=== PATIENT | male | born 1965 | race Caucasian/White ===

== ENCOUNTER 2017-08-08 11:15 | Inpatient (IN) | payer OTHER ==
[~2017-08-08] VITALS: Ht 170.2 cm; Wt 62.0 kg
[~2017-08-08 11:15] MED LIST: CHLO25CA PO; Z.0.NO CURRENT MEDS
[2017-08-08 11:17] VITALS: BP 178/104; PULSE 113; RESP 16; TEMP 98.4; O2SAT 96
[2017-08-08 14:21] VITALS: O2SAT 99
--- NOTE | 2017-08-08 14:24 | PD ---
HPI Chief Complaint: Lump, Cyst, Hernia Time Seen by Provider: 14:17 Travel History International Travel<30 days: No Contact w/Intl Traveler<30days: No Traveled to known affect area: No History of Present Illness HPI PATIENT STATES HAS HAD A LUMP ON ABDOMEN FOR 3 WEEKS BUT WOULD COME IN AND OUT....OVER LAST 2 DAYS HE WAS HAULING T[employer]BR[employer] AND FELT A SHARP PAIN TO ABDOMEN AND STEADY LUMP EVER SINCE, NOT GOING DOWN AND TOUCHING IT MAKES IT HURT...03/06 NO PCP PMHX:HTN, PREVIOUS ALCOHOLISM BUT PATIENT STATES THAT HE HAS KICK THE HABIT FREE SINCE A MONTH AGO.... PFSH Past Medical History Anxiety: Yes Cardiovascular Problems: Yes (HTN) Hypertension: Yes Social History Alcohol Use: Yes (WEEKLY) Tobacco Use: Yes (1/2 PPD) Allergies-Medications (Allergen,Severity, Reaction): Coded Allergies: penicillin G (Unverified Allergy, Severe, Anaphylaxis, 03/12/17) Reported Meds & Prescriptions Reported Meds & Active Scripts Active Librium (Chlordiazepoxide) 25 Mg Cap 25 Mg PO TID Reported No Current Meds (Miscellaneous Medication) Misc Review of Systems Except as stated in HPI: all other systems reviewed are Neg General / Constitutional: No: Fever Eyes: No: Visual changes HENT: No: Headaches Cardiovascular: No: Chest Pain or Discomfort Respiratory: No: Shortness of Breath Gastrointestinal: Positive: Abdominal Pain Genitourinary: No: Dysuria Musculoskeletal: No: Pain Skin: No Rash Neurologic: No: Weakness Psychiatric: No: Depression Endocrine: No: Polydipsia Hematologic/Lymphatic: No: Easy Bruising Physical Exam Narrative GENERAL: SKIN: Warm and dry. HEAD: Atraumatic. Normocephalic. EYES: Pupils equal and round. No scleral icterus. No injection or drainage. ENT: No nasal bleeding or discharge. Mucous membranes pink and moist. NECK: Trachea midline. No JVD. CARDIOVASCULAR: Regular rate and rhythm. RESPIRATORY: No accessory muscle use. Clear to auscultation. Breath sounds equal bilaterally. GASTROINTESTINAL: Abdomen soft, non-tender, nondistended. LEFT ANTERIOR ABD WALL 10X5CM AREA RAISED AND TTP MUSCULOSKELETAL: Extremities without clubbing, cyanosis, or edema. No obvious deformities. NEUROLOGICAL: Awake and alert. No obvious cranial nerve deficits. Motor grossly within normal limits. Five out of 5 muscle strength in the arms and legs. Normal speech. PSYCHIATRIC: Appropriate mood and affect; insight and judgment normal. Data Data Last Documented VS Vital Signs Date Time Temp Pulse Resp B/P (MAP) Pulse Ox O2 Delivery O2 Flow Rate FiO2 08/08/17 14:51 18 08/08/17 14:21 99 Room Air 08/08/17 11:17 98.4 113 Orders Orders Complete Blood Count With Diff (08/08/17 14:17) Comprehensive Metabolic Panel (08/08/17 14:17) Lipase (08/08/17 14:17) Urinalysis - C+S If Indicated (08/08/17 14:17) Ct Abd/Pel W Iv Contrast(Rout) (08/08/17 14:17) Iv Access Insert/Monitor (08/08/17 14:17) Ecg Monitoring (08/08/17 14:17) Oximetry (08/08/17 14:17) NPO (08/08/17 14:17) Morphine Inj (Morphine Inj) (08/08/17 14:30) Ondansetron Inj (Zofran Inj) (08/08/17 14:30) Sodium Chlor 0.9% 1000 Ml Inj (Ns 1000 M (08/08/17 14:17) Electrocardiogram (08/08/17 14:17) Iohexol 350 Inj (Omnipaque 350 Inj) (08/08/17 16:23) Labs Laboratory Tests Test 08/08/17 14:35 08/08/17 14:40 White Blood Count 9.4 TH/MM3 Red Blood Count 4.45 MIL/MM3 Hemoglobin 15.0 GM/DL Hematocrit 43.9 % Mean Corpuscular Volume 98.6 FL Mean Corpuscular Hemoglobin 33.7 PG Mean Corpuscular Hemoglobin Concent 34.2 % Red Cell Distribution Width 15.2 % Platelet Count 247 TH/MM3 Mean Platelet Volume 9.4 FL Neutrophils (%) (Auto) 67.0 % Lymphocytes (%) (Auto) 24.2 % Monocytes (%) (Auto) 7.5 % Eosinophils (%) (Auto) 1.1 % Basophils (%) (Auto) 0.2 % Neutrophils # (Auto) 6.3 TH/MM3 Lymphocytes # (Auto) 2.3 TH/MM3 Monocytes # (Auto) 0.7 TH/MM3 Eosinophils # (Auto) 0.1 TH/MM3 Basophils # (Auto) 0.0 TH/MM3 CBC Comment DIFF FINAL Differential Comment Blood Urea Nitrogen 10 MG/DL Creatinine 0.75 MG/DL Random Glucose 190 MG/DL Total Protein 7.8 GM/DL Albumin 3.0 GM/DL Calcium Level 9.0 MG/DL Alkaline Phosphatase 92 U/L Aspartate Amino Transf (AST/SGOT) 15 U/L Alanine Aminotransferase (ALT/SGPT) 16 U/L Total Bilirubin 0.3 MG/DL Sodium Level 134 MEQ/L Potassium Level 3.8 MEQ/L Chloride Level 97 MEQ/L Carbon Dioxide Level 29.7 MEQ/L Anion Gap 7 MEQ/L Estimat Glomerular Filtration Rate 110 ML/MIN Lipase 1248 U/L Urine Color YELLOW Urine Turbidity CLEAR Urine pH 5.5 Urine Specific [place] 1.022 Urine Protein TRACE mg/dL Urine Glucose (UA) 150 mg/dL Urine Ketones 10 mg/dL Urine Occult Blood NEG Urine Nitrite NEG Urine Bilirubin NEG Urine Urobilinogen 2.0 MG/DL Urine Leukocyte Esterase NEG Urine RBC LESS THAN 1 /hpf Urine WBC 1 /hpf Urine Squamous Epithelial Cells 1 /hpf Urine Mucus FEW /lpf Microscopic Urinalysis Comment CULT NOT INDICATED MDM Medical Decision Making Medical Screen Exam Complete: Yes Emergency Medical Condition: Yes Medical Record Reviewed: Yes Diagnosis Primary Impression: PANCREATITIS Additional Impression: LARGE PSEUDOCYST Admitting Information Admitting Physician Requests: Observation Fredis Willett MD Aug 08, 2017 14:24
[2017-08-08] MEDS ORDERED: ONDANSETRON HCL 4 MG/2 ML VIAL IVP ONE (14:30)
[2017-08-08] MEDS ORDERED: MORPHINE SULFATE 4 MG/ML INJ IV PUSH ONE (14:30)
[2017-08-08] MEDS: SODIUM CHLOR 0.9% 1000 ML INJ 1,000 ML IV SCH ×2 (14:46→19:33)
[2017-08-08 15:10] LABS: AUTOMATED NEUTROPHIL # 6.3 TH/MM3 (1.8-7.7); BASOPHIL % 0.2 % (0.0-2.0); EOSINOPHIL # 0.1 TH/MM3 (0-0.4); EOSINOPHIL % 1.1 % (0.0-4.0); HEMATOCRIT 43.9 % (39.0-51.0); LYMPH % 24.2 % (9.0-44.0); LYMPHOCYTE # 2.3 TH/MM3 (1.0-4.8); MEAN CELL VOLUME 98.6 FL (80.0-100.0); MEAN CORPUSCULAR HEMOGLOBIN 33.7 PG (27.0-34.0); MEAN CORPUSCULAR HGB CONC 34.2 % (32.0-36.0); MEAN PLATELET VOLUME 9.4 FL (7.0-11.0); MONO % 7.5 % (0.0-8.0); MONOCYTE # 0.7 TH/MM3 (0-0.9); PLATELET COUNT 247 TH/MM3 (150-450); RED BLOOD COUNT 4.45 MIL/MM3 (4.50-5.90); RED CELL DISTRIBUTION WIDTH 15.2 % (11.6-17.2); WHITE BLOOD COUNT 9.4 TH/MM3 (4.0-11.0)
[2017-08-08 15:28] LABS: BILIRUBIN, URINE NEG (NEG); BLOOD, URINE NEG (NEG); GLUCOSE,URINE 150 mg/dL (NEG); KETONE, URINE 10 mg/dL (NEG); MUCUS URINE FEW /lpf (OCC); NITRITE,URINE NEG (NEG); PH, URINE 5.5 (5.0-8.5); SQUAMOUS EPITHELIAL CELL URINE 1 /hpf (0-5); URINE COLOR YELLOW (YELLW/STRAW); URINE LEUKOCYTE ESTERASE NEG (NEG)
[2017-08-08 15:36] LABS: AST (GOT) 15 U/L (15-37); BICARBONATE 29.7 MEQ/L (21.0-32.0); BLOOD UREA NITROGEN 10 MG/DL (7-18); CHLORIDE 97 MEQ/L (98-107); CREATININE 0.75 MG/DL (0.60-1.30); GLOMERULAR FILTRATION RATE 110 ML/MIN (>89); GLUCOSE,RANDOM 190 MG/DL (74-106); SODIUM (NA) 134 MEQ/L (136-145)
[2017-08-08 15:42] LABS: ALKALINE PHOSPHATASE 92 U/L (45-117); ALT (GPT) 16 U/L (12-78); LIPASE 1248 U/L (73-393); TOTAL BILIRUBIN ADULT 0.3 MG/DL (0.2-1.0); TOTAL PROTEIN 7.8 GM/DL (6.4-8.2)
[2017-08-08] MEDS ORDERED: IOHEXOL 350 MG/ML 10 ML VIAL (for RAD DIAG) IVCONTRAST ONE (16:23)
--- NOTE | 2017-08-08 16:37 | RADRPT ---
EXAM DATE/TIME: 08/08/2017 15:58 [place] COMPARISON: No previous studies available for comparison. INDICATIONS : Abdominal pain, lump flet left side since April. IV CONTRAST: 100 cc Omnipaque 350 (iohexol) IV ORAL CONTRAST: No oral contrast ingested. RADIATION DOSE: 6.64 CTDIvol (mGy) MEDICAL HISTORY : Hypertension. CVA SURGICAL HISTORY : Non-responsive. ENCOUNTER: Initial ACUITY: 3 months PAIN SCALE: 6/10 LOCATION: Left middle abdomen TECHNIQUE: Volumetric scanning of the abdomen and pelvis was performed. Using automated exposure control and ad justment of the mA and/or kV according to patient size, radiation dose was kept as low as reasonably achievable to obtain optimal diagnostic quality images. DICOM format image data is available electro nically for review and comparison. FINDINGS: Minimal bibasilar parenchymal changes minimal LAD calcifications. Liver, spleen unremarkable There is a larg cyst that sitting between stomach and left kidney associated with dilated distal scott creatic duct stone the common duct consistent with pseudocyst.. This cyst measures 15 cm. There is symmetrical renal function. Trace free fluid is present in the pelvis. There is no adenopathy Abdominal wall is intact CONCLUSION: 1. 15 cm pseudocyst is present dilated pancreatic duct stone the pancreas. 2. Trace free fluid in the pelvis there Mikel Carrillo MD FACR on August 08, 2017 at 16:29 Board Certified Radiologist. This report was verified electronically.
[2017-08-08] MEDS ORDERED: NALOXONE HCL 0.4 MG/ML AMP IV PUSH PRN (18:30)
[2017-08-08] MEDS ORDERED: MAGNESIUM HYDROXIDE SUSP 30 ML CUP PO PRN (18:30)
[2017-08-08] MEDS ORDERED: ONDANSETRON HCL 4 MG/2 ML VIAL IVP PRN (18:30)
[2017-08-08] MEDS ORDERED: BISACODYL 10 MG SUPP RECTAL PRN (18:30)
[2017-08-08] MEDS ORDERED: LACTULOSE SYRUP 20 GM/30 ML CUP PO PRN (18:30)
[2017-08-08] MEDS ORDERED: ACETAMINOPHEN 325 MG TAB PO PRN (18:30)
[2017-08-08] MEDS ORDERED: SENNOSIDES 8.6 MG TAB PO PRN (18:30)
--- NOTE | 2017-08-08 18:39 | HHI.HP ---
[facility] Service [facility] Primary Care Physician No Primary Care Physician Admission Diagnosis LARGE PSEUDOCYST,ACUTE PANCREATITIS Diagnoses: Travel History International Travel<30 Days: No Contact w/Intl Traveler <30 Da: No Traveled to Known Affected Are: No History of Present Illness 52-year-old male with a past medical history significant for hypertension presents to the emergency department for evaluation of abdominal pain, nausea and a left sided abdominal mass that has been increasing in size since April. The patient reports that he first started noticing abdominal pain with associated anorexia in April. He states he's had a 20 pound weight loss since that time. Approximately 3 weeks ago he first noticed a lump on the left side of his mid abdomen. He states it is hard and feels like an avocado. There is pain associated with this lump and it is worse with palpation. The patient reports that he was a daily drinker until the abdominal pain started in April. He reports drinking only twice since that time most recently on [employer]. He reports the pain was excruciating following alcohol ingestion on [employer]. Vitals: Temperature 98.4, pulse 113, respiratory rate 16, BP 178/104, pulse ox 96% on room air. CT of the abdomen/pelvis significant for a pseudocyst with dilated pancreatic duct. Lipase 1248. Review of Systems Denies fever or chills Denies blurry vision, otorrhea, rhinorrhea Denies sore throat and cough No chest pain, palpitations, shortness of breath Positive abdominal pain Denies constipation/diarrhea/vomiting. Positive nausea Denies muscle pain/weakness No rashes Past Family Social History Past Medical History Hypertension Past Surgical History None Reported Medications None at this time Allergies: Coded Allergies: penicillin G (Unverified Allergy, Severe, Anaphylaxis, 03/12/17) Family History No family history of DM/CAD Social History Occasional cigars. Denies alcohol and illicit drugs. Prior to quitting alcohol in April the patient drank approximately 3 drinks daily. Physical Exam Vital Signs Vital Signs Date Time Temp Pulse Resp B/P (MAP) Pulse Ox O2 Delivery O2 Flow Rate FiO2 08/08/17 14:51 18 1/12/18 14:21 18 08/08/17 14:21 99 Room Air 08/08/17 11:17 98.4 113 16 178/104 (128) 96 Physical Exam GENERAL: male sitting up in bed SKIN: No rashes, ecchymoses or lesions. Cool and dry. HEAD: Atraumatic. Normocephalic. No temporal or scalp tenderness. EYES: Pupils equal round and reactive. Extraocular motions intact. No scleral icterus. No injection or drainage. ENT: Nose without bleeding, purulent drainage or septal hematoma. Throat without erythema, tonsillar hypertrophy or exudate. Uvula midline. Airway patent. NECK: Trachea midline. No JVD or lymphadenopathy. Supple, nontender, no meningeal signs. CARDIOVASCULAR: Regular rate and rhythm without murmurs, gallops, or rubs. RESPIRATORY: Clear to auscultation. Breath sounds equal bilaterally. No wheezes , rales, or rhonchi. GASTROINTESTINAL: Abdomen soft, nondistended. Left mid abdominal region with palpable mass measuring approximately 10 x 5 cm. Area is tender to palpation. MUSCULOSKELETAL: Extremities without clubbing, cyanosis, or edema. No joint tenderness, effusion, or edema noted. No calf tenderness. NEUROLOGICAL: Awake and alert. Cranial nerves II through XII intact. Motor and sensory grossly within normal limits. Normal speech. Laboratory Laboratory Tests Test 08/08/17 14:35 08/08/17 14:40 White Blood Count 9.4 Red Blood Count 4.45 Hemoglobin 15.0 Hematocrit 43.9 Mean Corpuscular Volume 98.6 Mean Corpuscular Hemoglobin 33.7 Mean Corpuscular Hemoglobin Concent 34.2 Red Cell Distribution Width 15.2 Platelet Count 247 Mean Platelet Volume 9.4 Neutrophils (%) (Auto) 67.0 Lymphocytes (%) (Auto) 24.2 Monocytes (%) (Auto) 7.5 Eosinophils (%) (Auto) 1.1 Basophils (%) (Auto) 0.2 Neutrophils # (Auto) 6.3 Lymphocytes # (Auto) 2.3 Monocytes # (Auto) 0.7 Eosinophils # (Auto) 0.1 Basophils # (Auto) 0.0 CBC Comment DIFF FINAL Differential Comment Blood Urea Nitrogen 10 Creatinine 0.75 Random Glucose 190 Total Protein 7.8 Albumin 3.0 Calcium Level 9.0 Alkaline Phosphatase 92 Aspartate Amino Transf (AST/SGOT) 15 Alanine Aminotransferase (ALT/SGPT) 16 Total Bilirubin 0.3 Sodium Level 134 Potassium Level 3.8 Chloride Level 97 Carbon Dioxide Level 29.7 Anion Gap 7 Estimat Glomerular Filtration Rate 110 Lipase 1248 Urine Color YELLOW Urine Turbidity CLEAR Urine pH 5.5 Urine Specific [place] 1.022 Urine Protein TRACE Urine Glucose (UA) 150 Urine Ketones 10 Urine Occult Blood NEG Urine Nitrite NEG Urine Bilirubin NEG Urine Urobilinogen 2.0 Urine Leukocyte Esterase NEG Urine RBC LESS THAN 1 Urine WBC 1 Urine Squamous Epithelial Cells 1 Urine Mucus FEW Microscopic Urinalysis Comment CULT NOT INDICATED Result Diagram: 08/08/17 1435 08/08/17 1435 Caprini VTE Risk Assessment Caprini VTE Risk Assessment: No/Low Risk (score <= 1) Caprini Risk Assessment Model Point Value = 1 Point Value = 2 Point Value = 3 Point Value = 5 Age 41-60 Minor surgery BMI > 25 kg/m2 Swollen legs Varicose veins or History of unexplained or recurrent spontaneous Oral contraceptives or hormone replacement Sepsis (< 1 month) Serious lung disease, including pneumonia (< 1 month) Abnormal pulmonary function Acute myocardial infarction Congestive heart failure (< 1 month) History of inflammatory bowel disease Medical patient at bed rest Age 61-74 Arthroscopic surgery Major open surgery (> 45 min) Laparoscopic surgery (> 45 min) Malignancy Confined to bed (> 72 hours) Immobilizing plaster cast Central venous access Age >= 75 History of VTE Family history of VTE Factor V Leiden Prothrombin [id number] Lupus anticoagulant Anticardiolipin antibodies Elevated serum homocysteine Heparin-induced thrombocytopenia Other congenital or acquired thrombophilia Stroke (< 1 month) Elective arthroplasty Hip, pelvis, or leg fracture Acute spinal cord injury (< 1 month) Prophylaxis Regimen Total Risk Factor Score Risk Level Prophylaxis Regimen 0-1 Low Early ambulation 2 Moderate Order ONE of the following: *Sequential Compression Device (SCD) *Heparin 5000 units SQ BID 3-4 Higher Order ONE of the following medications: *Heparin 5000 units SQ TID *Enoxaparin/Lovenox 40 mg SQ daily (WT < 150 kg, CrCl > 30 mL/min) *Enoxaparin/Lovenox 30 mg SQ daily (WT < 150 kg, CrCl > 10-29 mL/min) *Enoxaparin/Lovenox 30 mg SQ BID (WT < 150 kg, CrCl > 30 mL/min) AND/OR *Sequential Compression Device (SCD) 5 or more Highest Order ONE of the following medications: *Heparin 5000 units SQ TID (Preferred with Epidurals) *Enoxaparin/Lovenox 40 mg SQ daily (WT < 150 kg, CrCl > 30 mL/min) *Enoxaparin/Lovenox 30 mg SQ daily (WT < 150 kg, CrCl > 10-29 mL/min) *Enoxaparin/Lovenox 30 mg SQ BID (WT < 150 kg, CrCl > 30 mL/min) AND *Sequential Compression Device (SCD) Assessment and Plan Assessment and Plan Assessment/plan: 1. Pancreatitis/pseudocyst Lipase 1248 CT of the abdomen/pelvis significant for a 15 cm pseudocyst present with dilated distal pancreatic duct stone in the common duct Gastroenterology consulted, appreciate recommendations Nothing by mouth IV fluids Morphine for pain 2. Hypertension Patient previously on atenolol, stopped taking it because he could no longer get it Hypertensive in the emergency department Resume home atenolol at previous dosing 50 mg daily Monitor blood pressure and adjust as needed FEN NPO Electrolytes: monitor and replete prn NS at 125 cc/hr SCDs Physician Certification 2 Midnight Certification Type: Admission for Inpatient Services Order for Inpatient Services The services are ordered in accordance with Medicare regulations or non- Medicare payer requirements, as applicable. In the case of services not specified as inpatient-only, they are appropriately provided as inpatient services in accordance with the 2-midnight benchmark. Estimated LOS (days): 2 2 days is the estimated time the patient will need to remain in the hospital, assuming treatment plan goals are met and no additional complications. Post-Hospital Plan: Not yet determined Raeann Schmitt MD Aug 08, 2017 18:39
[2017-08-08 19:17] VITALS: BP 169/102; PULSE 79; RESP 18; TEMP 97.5; O2SAT 95
[2017-08-08] MEDS: SODIUM CHLORIDE 0.9% FLUSH 10 ML FLUSH IV FLUSH SCH (19:33)
[2017-08-08] MEDS: DOCUSATE SODIUM 50 MG/SENNA 8.6 MG TAB PO SCH (19:33)
[2017-08-08] MEDS: ATENOLOL 50 MG TAB PO SCH (19:33)
[2017-08-08] MEDS: MORPHINE SULFATE 2 MG/ML INJ IV PUSH PRN (19:34)
[2017-08-09] VITALS (7 sets, daily range): BP systolic 117–142; BP diastolic 76–90; PULSE 66–85; RESP 16–17; TEMP 97.4–98.2; O2SAT 95–99
[2017-08-09] MEDS: SODIUM CHLOR 0.9% 1000 ML INJ 1,000 ML IV SCH ×3 (03:25→17:28)
[2017-08-09] MEDS: MORPHINE SULFATE 2 MG/ML INJ IV PUSH PRN ×4 (03:25→16:22)
[2017-08-09 05:56] LABS: AUTOMATED NEUTROPHIL # 5.3 TH/MM3 (1.8-7.7); BASOPHIL % 0.3 % (0.0-2.0); EOSINOPHIL # 0.2 TH/MM3 (0-0.4); EOSINOPHIL % 2.2 % (0.0-4.0); HEMATOCRIT 38.2 % (39.0-51.0); HEMOGLOBIN 12.9 GM/DL (13.0-17.0); LYMPH % 25.1 % (9.0-44.0); MEAN CELL VOLUME 99.3 FL (80.0-100.0); MEAN CORPUSCULAR HEMOGLOBIN 33.5 PG (27.0-34.0); MEAN CORPUSCULAR HGB CONC 33.8 % (32.0-36.0); MEAN PLATELET VOLUME 8.9 FL (7.0-11.0); MONOCYTE # 0.6 TH/MM3 (0-0.9); NEUT % 65.4 % (16.0-70.0); PLATELET COUNT 216 TH/MM3 (150-450); RED BLOOD COUNT 3.85 MIL/MM3 (4.50-5.90); RED CELL DISTRIBUTION WIDTH 14.9 % (11.6-17.2); WHITE BLOOD COUNT 8.2 TH/MM3 (4.0-11.0)
[2017-08-09 06:16] LABS: ALBUMIN 2.6 GM/DL (3.4-5.0); AST (GOT) 15 U/L (15-37); BLOOD UREA NITROGEN 7 MG/DL (7-18); CALCIUM 8.3 MG/DL (8.5-10.1); CHLORIDE 104 MEQ/L (98-107); CREATININE 0.57 MG/DL (0.60-1.30); GLOMERULAR FILTRATION RATE 151 ML/MIN (>89); GLUCOSE,RANDOM 91 MG/DL (74-106); LIPASE 1216 U/L (73-393); SODIUM (NA) 138 MEQ/L (136-145)
[2017-08-09 06:20] LABS: ALKALINE PHOSPHATASE 77 U/L (45-117); ALT (GPT) 14 U/L (12-78); TOTAL BILIRUBIN ADULT 0.4 MG/DL (0.2-1.0); TOTAL PROTEIN 6.7 GM/DL (6.4-8.2)
[2017-08-09] MEDS: DOCUSATE SODIUM 50 MG/SENNA 8.6 MG TAB PO SCH ×2 (09:00→21:06)
[2017-08-09] MEDS: SODIUM CHLORIDE 0.9% FLUSH 10 ML FLUSH IV FLUSH SCH ×2 (09:00→21:06)
[2017-08-09] MEDS ORDERED: RANI150T PO (09:57)
[2017-08-09] MEDS: ATENOLOL 50 MG TAB PO SCH (09:58)
--- NOTE | 2017-08-09 10:27 | PD.CONS ---
HPI History of Present Illness This is a 52 year old M who presented to the emergency department yesterday with complaints of abdominal pain, nausea, and a growing mass on the left side of his abdomen. Pt reports that he first started noticing he was losing a significant amount of weight in April and a mass on the left side of his abdomen which has been growing in size and becoming increasingly more firm. Approximately a 20 pound weight loss over two months. He was concerned so he states he changed his diet and completely quit drinking alcohol. Up to that point he was a heavy drinker, approx 3 glasses of wine a night for the past five years. He did notice some improvement in the abdominal pain initially, however that didn't last. Pt is now having epigastric pain and burning, pain became so severe that he states it causes him to cripple over, has also noticed that it has been increasing in frequency. Pain is worse after eating and relieves some when he lies down. Also complaining of nausea worse over the past few weeks, worse in the morning, denies vomiting. CT abdomen and pelvis with IV contrast (08/08) -->15cm pseudocyst is present dilated pancreatic duct stone in the pancreas. Trace free fluid in the pelvis area. Lipase 1216. Pt does report history of pancreatitis approx 6 years ago. Reports he has been taking on OTC pancreatic supplement called Pancreatin. Denies black, tarry stool, BRBPR, constipation, diarrhea. Denies ever having EGD or colonoscopy. Reports he has been taking Ibuprofen 2 tabs every six hours for the past few weeks for abdominal pain, previously taking BC powder. Not currently taking any medication, states he tries natural remedies for everything. (Blessing Altamirano) PFSH Past Medical History Hypertension TIA Past Surgical History None (Blessing Altamirano) Coded Allergies: penicillin G (Unverified Allergy, Severe, Anaphylaxis, 08/08/17) adhesive tape (Verified Allergy, Unknown, Rash, 08/08/17) RASH AND ITCH Family History No family history of DM/CAD Social History Occasional cigars. Denies alcohol and illicit drugs. Prior to quitting alcohol in April the patient drank approximately 3 drinks daily. (Blessing Altamirano) Review of Systems Gastrointestinal: COMPLAINS OF: Abdominal pain, Nausea, Anorexia, Swelling of Abdomen, Heartburn, DENIES: Black stools, Bloody stools, Constipation, Diarrhea , Vomiting, Difficulty Swallowing, Hematemesis (Blessing Altamirano) GI Exam Vitals I&O Vital Signs Date Time Temp Pulse Resp B/P (MAP) Pulse Ox O2 Delivery O2 Flow Rate FiO2 08/09/17 08:00 98.2 77 16 137/84 (101) 96 08/09/17 04:00 97.8 73 17 142/90 (107) 96 08/09/17 00:00 97.5 85 16 117/76 (90) 97 08/08/17 19:45 08/08/17 19:17 97.5 79 18 169/102 (124) 95 08/08/17 14:51 18 08/08/17 14:21 18 08/08/17 14:21 99 Room Air 08/08/17 11:17 98.4 113 16 178/104 (128) 96 I/O 08/08/17 08/08/17 08/08/17 08/09/17 08/09/17 08/09/17 07:00 15:00 23:00 07:00 15:00 23:00 Intake Total 0 ml 1000 ml Balance 0 ml 1000 ml Intake Oral 0 ml 0 ml IV Total 1000 ml # Voids 1 2 Imaging Last Impressions Abdomen/Pelvis CT 08/08/17 1417 Signed Impressions: Service Date/Time: Tuesday, August 08, 2017 15:58 - CONCLUSION: 1. 15 cm pseudocyst is present dilated pancreatic duct stone the pancreas. 2. Trace free fluid in the pelvis there Mikel Carrillo MD FACR Laboratory Test 08/08/17 14:35 08/08/17 14:40 08/09/17 05:00 08/09/17 05:30 White Blood Count 9.4 TH/MM3 8.2 TH/MM3 Red Blood Count 4.45 MIL/MM3 3.85 MIL/MM3 Hemoglobin 15.0 GM/DL 12.9 GM/DL Hematocrit 43.9 % 38.2 % Mean Corpuscular Volume 98.6 FL 99.3 FL Mean Corpuscular Hemoglobin 33.7 PG 33.5 PG Mean Corpuscular Hemoglobin Concent 34.2 % 33.8 % Red Cell Distribution Width 15.2 % 14.9 % Platelet Count 247 TH/MM3 216 TH/MM3 Mean Platelet Volume 9.4 FL 8.9 FL Neutrophils (%) (Auto) 67.0 % 65.4 % Lymphocytes (%) (Auto) 24.2 % 25.1 % Monocytes (%) (Auto) 7.5 % 7.0 % Eosinophils (%) (Auto) 1.1 % 2.2 % Basophils (%) (Auto) 0.2 % 0.3 % Neutrophils # (Auto) 6.3 TH/MM3 5.3 TH/MM3 Lymphocytes # (Auto) 2.3 TH/MM3 2.0 TH/MM3 Monocytes # (Auto) 0.7 TH/MM3 0.6 TH/MM3 Eosinophils # (Auto) 0.1 TH/MM3 0.2 TH/MM3 Basophils # (Auto) 0.0 TH/MM3 0.0 TH/MM3 CBC Comment DIFF FINAL DIFF FINAL Differential Comment Blood Urea Nitrogen 10 MG/DL 7 MG/DL Creatinine 0.75 MG/DL 0.57 MG/DL Random Glucose 190 MG/DL 91 MG/DL Total Protein 7.8 GM/DL 6.7 GM/DL Albumin 3.0 GM/DL 2.6 GM/DL Calcium Level 9.0 MG/DL 8.3 MG/DL Alkaline Phosphatase 92 U/L 77 U/L Aspartate Amino Transf (AST/SGOT) 15 U/L 15 U/L Alanine Aminotransferase (ALT/SGPT) 16 U/L 14 U/L Total Bilirubin 0.3 MG/DL 0.4 MG/DL Sodium Level 134 MEQ/L 138 MEQ/L Potassium Level 3.8 MEQ/L 3.7 MEQ/L Chloride Level 97 MEQ/L 104 MEQ/L Carbon Dioxide Level 29.7 MEQ/L 26.0 MEQ/L Anion Gap 7 MEQ/L 8 MEQ/L Estimat Glomerular Filtration Rate 110 ML/MIN 151 ML/MIN Lipase 1248 U/L 1216 U/L Urine Color YELLOW Urine Turbidity CLEAR Urine pH 5.5 Urine Specific [place] 1.022 Urine Protein TRACE mg/dL Urine Glucose (UA) 150 mg/dL Urine Ketones 10 mg/dL Urine Occult Blood NEG Urine Nitrite NEG Urine Bilirubin NEG Urine Urobilinogen 2.0 MG/DL Urine Leukocyte Esterase NEG Urine RBC LESS THAN 1 /hpf Urine WBC 1 /hpf Urine Squamous Epithelial Cells 1 /hpf Urine Mucus FEW /lpf Microscopic Urinalysis Comment CULT NOT INDICATED Physical Examination HEENT: Normocephalic; atraumatic CHEST: CTA CARDIAC: RRR ABDOMEN: Left side of abdomen firm and TTP, bowel sounds active EXTREMITIES: No clubbing, cyanosis, or edema. SKIN: Normal; no rash; no jaundice. REGULATOR INSPECTOR: No focal deficits; alert and oriented times three. (Blessing Altamirano) Assessment and Plan Plan Assessment: - Pancreatic pseudocyst- Pt reports unintentional weight loss, severe epigastric pain and burning, nausea, and growing mass to left side of his abdomen since April. Previously heavy drinker, quit ETOH May 09 and changed his diet with no relief of symptoms. Does report one episode of pancreatitis approx [address] abdomen and pelvis with IV contrast (08/08) noted --> 15cm pseudocyst is present dilated pancreatic duct stone in the pancreas. Trace free fluid in the pelvis area. Lipase 1216. - Anemia- Currently 12.9/38.2 drop from 15/43.9 yesterday. Could be partially dilutional from IV fluids. No obvious GIB. However, pt does report taking Ibuprofen 2 tabs q 6hrs for epigastric pain for the past few weeks and prior to that was taking BC powder. Has never had EGD or colonoscopy Plan: - Possible need for IR consult for drainage of pseudocyst - ERCP/EUS- timing to be determined - Keep pt NPO for bowel rest - Monitor lipase - Ca 19-9 - CEA - Monitor H/H - Transfuse as needed - Supportive care - Further recommendations to follow based on results of above Pt has been seen and examined by myself and Dr. Graham and this note is written on her behalf (Blessing Altamirano) Physician Comments seen, examined agree with above start pantoprazole 40 mg bid we will consult surgery in am trial of clear liquid diet (Leslie Graham MD) Blessing Altamirano Aug 09, 2017 10:27 Leslie Graham MD Aug 09, 2017 19:27
[2017-08-09 14:10] LABS: CARCINOEMBRYONIC ANTIGEN 2.7 NG/ML (0.2-5.0)
[2017-08-09 14:48] LABS: CA 19-9 7.1 U/ML (0.0-35.0)
--- NOTE | 2017-08-09 14:59 | EKG ---
Date Performed: 08/08/2017 Time Performed: 14:53:13 PTAGE: 52 years EKG: Sinus rhythm POSSIBLE RIGHT VENTRICULAR CONDUCTION DELAY NONSPECIFIC T-WAVE ABNORMALITY BORDERLINE ECG PREVIOUS TRACING : 04/28/2011 15.59 Since previous tracing, no significant change noted DOCTOR: Reza Clifford Interpretating Date/Time 08/09/2017 14:57:35
--- NOTE | 2017-08-09 16:31 | HHI.PR ---
Subjective Remarks CT shows a 15 cm pancreatic pseudocyst. Evidence for ductal pancreatic stone. No adenopathy. Mild amount of free fluid in the pelvis. Patient has no acute complaints other than the chronic symptoms he has been having which included abdominal pain and distention of the left.. Objective Vital Signs Date Time Temp Pulse Resp B/P (MAP) Pulse Ox O2 Delivery O2 Flow Rate FiO2 08/09/17 16:19 97.5 66 17 131/80 (97) 99 08/09/17 12:00 97.6 68 17 135/83 (100) 98 08/09/17 08:00 98.2 77 16 137/84 (101) 96 08/09/17 04:00 97.8 73 17 142/90 (107) 96 08/09/17 00:00 97.5 85 16 117/76 (90) 97 08/08/17 19:45 08/08/17 19:17 97.5 79 18 169/102 (124) 95 I/O 08/08/17 08/08/17 08/08/17 08/09/17 08/09/17 08/09/17 07:00 15:00 23:00 07:00 15:00 23:00 Intake Total 0 ml 1000 ml 2017 ml Balance 0 ml 1000 ml 2016 ml Intake Oral 0 ml 0 ml IV Total 1000 ml 2017 ml # Voids 1 2 Result Diagram: 08/09/17 0530 08/09/17 0500 Objective Remarks GENERAL: NAD, A&Ox3 HEAD: Normocephalic. NECK: Supple, trachea midline. No lymphadenopathy. EYES: No scleral icterus. No injection or drainage. CARDIOVASCULAR: Regular rate and rhythm without murmurs, gallops, or rubs. RESPIRATORY: Breath sounds equal bilaterally. No accessory muscle use. GASTROINTESTINAL: Abdomen soft. Tenderness and distention at left upper quadrant. MUSCULOSKELETAL: No cyanosis, or edema. SKIN: Warm and dry. NEURO: No focal neurological deficitis. A/P Problem List: (1) Pancreatic cyst ICD Code: K86.2 - Cyst of pancreas (2) Pancreatic duct stones ICD Code: K86.89 - Other specified diseases of pancreas Assessment and Plan 52 year old male admitted with abdominal pain and left abdominal distention and tenderness. Imaging shows evidence of pancreatic pseudocyst. Stone present and pancreatic duct. Pancreatitis pseudocyst Pancreatic duct stone GI following ERCP plan Possible IR drainage of pseudocyst Follow lipase level Procedure times being determined Nothing by mouth for now Hypertension Follow blood pressures Continue atenolol Adjust blood pressures as needed DVT prophylaxis SCDs Mario Shell MD Aug 09, 2017 16:31
[2017-08-09] MEDS: PANTOPRAZOLE SODIUM 40 MG VIAL IV PUSH SCH (21:07)
[2017-08-10] MEDS: SODIUM CHLOR 0.9% 1000 ML INJ 1,000 ML IV SCH ×4 (02:22→15:22)
[2017-08-10] MEDS: MORPHINE SULFATE 2 MG/ML INJ IV PUSH PRN ×5 (02:28→21:19)
[2017-08-10] MEDS: SODIUM CHLORIDE 0.9% FLUSH 10 ML FLUSH IV FLUSH PRN ×2 (02:28→21:19)
[2017-08-10 07:57] VITALS: BP 135/88; PULSE 75; RESP 18; TEMP 97.3; O2SAT 96
[2017-08-10] MEDS: PANTOPRAZOLE SODIUM 40 MG VIAL IV PUSH SCH ×2 (09:20→20:44)
[2017-08-10] MEDS: SODIUM CHLORIDE 0.9% FLUSH 10 ML FLUSH IV FLUSH SCH ×2 (09:21→20:45)
[2017-08-10] MEDS: DOCUSATE SODIUM 50 MG/SENNA 8.6 MG TAB PO SCH ×2 (09:21→20:45)
[2017-08-10] MEDS: ATENOLOL 50 MG TAB PO SCH (09:21)
[2017-08-10 09:31] LABS: AUTOMATED NEUTROPHIL # 4.3 TH/MM3 (1.8-7.7); BASOPHIL % 0.6 % (0.0-2.0); EOSINOPHIL # 0.2 TH/MM3 (0-0.4); EOSINOPHIL % 2.5 % (0.0-4.0); HEMATOCRIT 38.3 % (39.0-51.0); HEMOGLOBIN 13.1 GM/DL (13.0-17.0); LYMPH % 37.9 % (9.0-44.0); LYMPHOCYTE # 3.1 TH/MM3 (1.0-4.8); MEAN CELL VOLUME 99.4 FL (80.0-100.0); MEAN CORPUSCULAR HEMOGLOBIN 34.1 PG (27.0-34.0); MEAN CORPUSCULAR HGB CONC 34.3 % (32.0-36.0); MEAN PLATELET VOLUME 9.7 FL (7.0-11.0); MONO % 7.1 % (0.0-8.0); MONOCYTE # 0.6 TH/MM3 (0-0.9); NEUT % 51.9 % (16.0-70.0); PLATELET COUNT 233 TH/MM3 (150-450); RED BLOOD COUNT 3.85 MIL/MM3 (4.50-5.90); RED CELL DISTRIBUTION WIDTH 14.9 % (11.6-17.2); WHITE BLOOD COUNT 8.2 TH/MM3 (4.0-11.0)
[2017-08-10 09:51] LABS: ALBUMIN 2.4 GM/DL (3.4-5.0); AST (GOT) 14 U/L (15-37); BICARBONATE 24.4 MEQ/L (21.0-32.0); BLOOD UREA NITROGEN 7 MG/DL (7-18); CALCIUM 8.4 MG/DL (8.5-10.1); CHLORIDE 100 MEQ/L (98-107); CREATININE 0.59 MG/DL (0.60-1.30); GLOMERULAR FILTRATION RATE 145 ML/MIN (>89); GLUCOSE,RANDOM 52 MG/DL (74-106); LIPASE 436 U/L (73-393); SODIUM (NA) 135 MEQ/L (136-145)
[2017-08-10 09:52] LABS: ALT (GPT) 12 U/L (12-78)
[2017-08-10 09:54] LABS: ALKALINE PHOSPHATASE 74 U/L (45-117); TOTAL BILIRUBIN ADULT 0.4 MG/DL (0.2-1.0); TOTAL PROTEIN 6.5 GM/DL (6.4-8.2)
[2017-08-10 11:42] VITALS: BP 155/86; PULSE 63; RESP 18; TEMP 97.7; O2SAT 98
--- NOTE | 2017-08-10 13:06 | HHI.GIFU ---
Subjective Remarks Pt sitting on side of bed. Reportedly just went downstairs to get some fresh air, smells like cigarette smoke. States abdominal pain this morning, resolved with pain medication. Tolerating clear liquids, denies nausea and vomiting. (Blessing Altamirano) Objective Vitals I&O Vital Signs Date Time Temp Pulse Resp B/P (MAP) Pulse Ox O2 Delivery O2 Flow Rate FiO2 08/10/17 11:42 97.7 63 18 155/86 (109) 98 08/10/17 07:57 97.3 75 18 135/88 (104) 96 08/09/17 23:30 97.5 68 16 117/79 (92) 95 08/09/17 20:40 97.4 72 16 129/81 (97) 96 08/09/17 16:19 97.5 66 17 131/80 (97) 99 I/O 08/09/17 08/09/17 08/09/17 08/10/17 08/10/17 08/10/17 07:00 15:00 23:00 07:00 15:00 23:00 Intake Total 1000 ml 2017 ml 0 ml 1945 ml 371 ml Output Total 1400 ml Balance 1000 ml 617 ml 0 ml 1945 ml 371 ml Intake Oral 0 ml 0 ml 0 ml 0 ml IV Total 1000 ml 2017 ml 1945 ml 371 ml Output Urine Total 1400 ml # Voids 2 4 2 3 # Bowel Movements 1 0 0 Laboratory Laboratory Tests Test 08/10/17 07:09 08/10/17 07:29 Blood Urea Nitrogen 7 Creatinine 0.59 Random Glucose 52 Total Protein 6.5 Albumin 2.4 Calcium Level 8.4 Alkaline Phosphatase 74 Aspartate Amino Transf (AST/SGOT) 14 Alanine Aminotransferase (ALT/SGPT) 12 Total Bilirubin 0.4 Sodium Level 135 Potassium Level 3.8 Chloride Level 100 Carbon Dioxide Level 24.4 Anion Gap 11 Estimat Glomerular Filtration Rate 145 Lipase 436 White Blood Count 8.2 Red Blood Count 3.85 Hemoglobin 13.1 Hematocrit 38.3 Mean Corpuscular Volume 99.4 Mean Corpuscular Hemoglobin 34.1 Mean Corpuscular Hemoglobin Concent 34.3 Red Cell Distribution Width 14.9 Platelet Count 233 Mean Platelet Volume 9.7 Neutrophils (%) (Auto) 51.9 Lymphocytes (%) (Auto) 37.9 Monocytes (%) (Auto) 7.1 Eosinophils (%) (Auto) 2.5 Basophils (%) (Auto) 0.6 Neutrophils # (Auto) 4.3 Lymphocytes # (Auto) 3.1 Monocytes # (Auto) 0.6 Eosinophils # (Auto) 0.2 Basophils # (Auto) 0.0 CBC Comment DIFF FINAL Differential Comment Imaging Last Impressions Abdomen/Pelvis CT 08/08/17 1417 Signed Impressions: Service Date/Time: Tuesday, August 08, 2017 15:58 - CONCLUSION: 1. 15 cm pseudocyst is present dilated pancreatic duct stone the pancreas. 2. Trace free fluid in the pelvis there Mikel Carrillo MD FACR Physical Exam HEENT: Normocephalic; atraumatic CHEST: Even/unlabored CARDIAC: RRR ABDOMEN: Left sided firm, nontender, bowel sounds active EXTREMITIES: No clubbing, cyanosis, or edema. SKIN: Normal; no rash; no jaundice. BUSINESS CONTINUITY MANAGER: No focal deficits; alert and oriented times three. (Blessing Altamirano) Assessment and Plan Plan Assessment: - Pancreatic pseudocyst- Pt reports unintentional weight loss, severe epigastric pain and burning, nausea, and growing mass to left side of his abdomen since April. Previously heavy drinker, quit ETOH May 09 and changed his diet with no relief of symptoms. Does report one episode of pancreatitis approx [address] abdomen and pelvis with IV contrast (08/08) noted --> 15cm pseudocyst is present dilated pancreatic duct stone in the pancreas. Trace free fluid in the pelvis area. Lipase 1216. - Anemia- Currently 12.9/38.2 drop from 15/43.9 yesterday. Could be partially dilutional from IV fluids. No obvious GIB. However, pt does report taking Ibuprofen 2 tabs q 6hrs for epigastric pain for the past few weeks and prior to that was taking BC powder. Has never had EGD or colonoscopy (08/09) Pt tolerating clear liquids, denies nausea and vomiting. Reports abdominal pain this morning resolved with pain medication. States has not had a BM feels like he needs to have one. Dr. Graham spoke with GS regarding pts case, plan will be EUS with possible transgastric drainage of pseudocyst tomorrow and possible ercp with pancreatic stone extraction. Keep pt NPO after MN. CEA-2.7 [id number] Lipase improved to 436 today. Plan: - EUS with possible transgastric drainage of pseudocyst - Possible ERCP with pancreatic stone extraction - Obtain consents - Clear liquids now - NPO after MN - Monitor lipase - Monitor H/H - Transfuse as needed - Supportive care - Further recommendations to follow based on results of above Pt has been seen and examined by myself and Dr. Graham and this note is written on her behalf (Blessing Altamirano) Physician Comments seen, examined agree with above (Leslie Graham MD) Blessing Altamirano Aug 10, 2017 13:06 Leslie Graham MD Aug 10, 2017 18:58
--- NOTE | 2017-08-10 14:31 | MB ---
cc: GIN YOUNGER M.D. DATE OF CONSULTATION: 08/10/2017. REASON FOR CONSULTATION: Large pancreatic pseudocyst. HISTORY OF PRESENT ILLNESS: The patient is a 52-year-old male with past medical history significant only for hypertension who presented with abdominal pain, which began about three weeks ago. The patient has had some mass effect in the left abdomen since April with some weight loss. The patient reports having approximately three large glasses of wine a day until the pain started in April. He had some alcohol on with excruciating pain after that as well. CT of the abdomen and pelvis was obtained, which demonstrates a large 15 cm pancreatic pseudocyst with calcification in the pancreatic duct consistent with a pancreatic duct stone. Lipase was 1240. REVIEW OF SYSTEMS: Review of systems is negative except for gastrointestinal system which demonstrates nausea and pain. No problems with emesis or change in bowel habits. The patient has had no previous surgeries. MEDICATIONS: He was on no medications at the time of admission. ALLERGIES: PENICILLIN G. SOCIAL HISTORY: The patient smokes occasional cigarettes, cigars and a pipe. PHYSICAL EXAMINATION: GENERAL: His physical exam reveals a male in good spirits. He does not appear in any acute distress. VITAL SIGNS: Blood pressure 155/86, pulse 63, respirations 18, temperature 97.7, 98% saturation on room air. HEAD, EYES, EARS, NOSE, THROAT: Sclerae anicteric. Pupils reactive. CHEST: Chest is clear to auscultation. CARDIAC: Cardiac exam reveals regular rate and rhythm without murmurs. ABDOMEN: Abdomen is soft with minimal tenderness on the left side with an obvious mass effect that is firm, non-mobile and slightly tender. Pulses are present. NEUROLOGIC: Exam is nonfocal. LABORATORY STUDIES: Laboratory values demonstrate WBCs of 8.2, hemoglobin is 13.1, platelets are 233,000. Chemistries demonstrate lipase of 436 down from 1248 ON 08/08. CEA and CA19-9 are within normal limits. Urinalysis is unremarkable. IMAGING STUDIES: Once again, CT demonstrates an extremely large cystic mass between the stomach and left kidney. There is a trace of free fluid. There is no adenopathy. ASSESSMENT: Large distal pancreatic pseudocyst. PLAN: Gastroenterology has already seen the patient and are planning consideration of US with transgastric drainage, which would be very reasonable in this patient. If the fluid is thick and drainage will be unsuccessful, surgical intervention could be planned. I have discussed this with the patient, and he is agreeable. Will discuss this with Dr. Schroeder after attempted drainage procedure. We will follow with you. MD LEONOR Ivy/JCConsuelo /1:56 PM /2:20 PM
--- NOTE | 2017-08-10 14:51 | HHI.PR ---
Subjective Remarks No new complaints from the patient today. He is been transitioned to a clear liquid diet and is tolerating this. Plan for EUS with potential for needle guided gastric drainage of pseudocyst and ERCP tomorrow. CT shows a 15 cm pancreatic pseudocyst. Evidence for ductal pancreatic stone. No adenopathy. Mild amount of free fluid in the pelvis. Pain control. Objective Vital Signs Date Time Temp Pulse Resp B/P (MAP) Pulse Ox O2 Delivery O2 Flow Rate FiO2 08/10/17 11:42 97.7 63 18 155/86 (109) 98 08/10/17 07:57 97.3 75 18 135/88 (104) 96 08/09/17 23:30 97.5 68 16 117/79 (92) 95 08/09/17 20:40 97.4 72 16 129/81 (97) 96 08/09/17 16:19 97.5 66 17 131/80 (97) 99 I/O 08/09/17 08/09/17 08/09/17 08/10/17 08/10/17 08/10/17 07:00 15:00 23:00 07:00 15:00 23:00 Intake Total 1000 ml 2017 ml 0 ml 1945 ml 1171 ml Output Total 1400 ml Balance 1000 ml 617 ml 0 ml 1945 ml 1171 ml Intake Oral 0 ml 0 ml 0 ml 0 ml 800 ml IV Total 1000 ml 2017 ml 1945 ml 371 ml Output Urine Total 1400 ml # Voids 2 4 2 3 5 # Bowel Movements 1 0 0 0 Result Diagram: 08/10/17 0729 08/10/17 0709 Objective Remarks GENERAL: NAD, A&Ox3 HEAD: Normocephalic. NECK: Supple, trachea midline. No lymphadenopathy. EYES: No scleral icterus. No injection or drainage. CARDIOVASCULAR: Regular rate and rhythm without murmurs, gallops, or rubs. RESPIRATORY: Breath sounds equal bilaterally. No accessory muscle use. GASTROINTESTINAL: Abdomen soft. Tenderness and distention at left upper quadrant. MUSCULOSKELETAL: No cyanosis, or edema. SKIN: Warm and dry. NEURO: No focal neurological deficitis. A/P Problem List: (1) Pancreatic cyst ICD Code: K86.2 - Cyst of pancreas (2) Pancreatic duct stones ICD Code: K86.89 - Other specified diseases of pancreas Assessment and Plan 52 year old male admitted with abdominal pain and left abdominal distention and tenderness. Imaging shows evidence of pancreatic pseudocyst. Stone present, possibly pancreatic duct. EUS (for possible cyst drainage) and EGD tomorrow. Pancreatitis pseudocyst Pancreatic duct stone GI following ERCP plan Possible IR drainage of pseudocyst Follow lipase level Procedure times being determined Nothing by mouth for now Hypertension Follow blood pressures Continue atenolol Adjust blood pressures as needed DVT prophylaxis SCDs Mario Shell MD Aug 10, 2017 14:51
[2017-08-10 15:34] VITALS: BP 131/86; PULSE 70; RESP 18; TEMP 99.1; O2SAT 98
[2017-08-10 20:10] VITALS: BP 144/93; PULSE 60; RESP 18; TEMP 97.9; O2SAT 99
[2017-08-11 00:28] VITALS: BP 139/87; PULSE 65; RESP 18; TEMP 98; O2SAT 98
[2017-08-11] MEDS: MORPHINE SULFATE 2 MG/ML INJ IV PUSH PRN ×5 (01:21→20:19)
[2017-08-11] MEDS: SODIUM CHLORIDE 0.9% FLUSH 10 ML FLUSH IV FLUSH PRN ×2 (01:21→06:25)
[2017-08-11] MEDS: SODIUM CHLOR 0.9% 1000 ML INJ 1,000 ML IV SCH ×3 (02:22→18:22)
[2017-08-11 04:15] VITALS: BP 143/88; PULSE 58; RESP 18; TEMP 98.2; O2SAT 98
[2017-08-11] MEDS ORDERED: CHLORHEXIDINE GLUCONATE 2 % 1 PACK (2 CLOTHS) TOPICAL PRN (04:45)
[2017-08-11] MEDS ORDERED: POVIDONE IODINE 5% (ANTISEPSIS KIT) 4 APPLICATIONS EACH NARE PRN (04:45)
[2017-08-11] MEDS ORDERED: LACTATED RINGER'S 1000 ML IV PRN (04:45)
[2017-08-11 06:18] LABS: AUTOMATED NEUTROPHIL # 3.7 TH/MM3 (1.8-7.7); BASOPHIL % 0.6 % (0.0-2.0); EOSINOPHIL # 0.2 TH/MM3 (0-0.4); EOSINOPHIL % 2.7 % (0.0-4.0); HEMATOCRIT 38.7 % (39.0-51.0); HEMOGLOBIN 13.1 GM/DL (13.0-17.0); LYMPH % 39.4 % (9.0-44.0); LYMPHOCYTE # 2.9 TH/MM3 (1.0-4.8); MEAN CELL VOLUME 99.3 FL (80.0-100.0); MEAN CORPUSCULAR HEMOGLOBIN 33.5 PG (27.0-34.0); MEAN CORPUSCULAR HGB CONC 33.7 % (32.0-36.0); MEAN PLATELET VOLUME 9.6 FL (7.0-11.0); MONO % 7.7 % (0.0-8.0); MONOCYTE # 0.6 TH/MM3 (0-0.9); NEUT % 49.6 % (16.0-70.0); PLATELET COUNT 216 TH/MM3 (150-450); RED CELL DISTRIBUTION WIDTH 14.7 % (11.6-17.2); WHITE BLOOD COUNT 7.4 TH/MM3 (4.0-11.0)
[2017-08-11 06:28] LABS: ALBUMIN 2.4 GM/DL (3.4-5.0); AST (GOT) 12 U/L (15-37); BICARBONATE 28.7 MEQ/L (21.0-32.0); BLOOD UREA NITROGEN 3 MG/DL (7-18); CALCIUM 8.3 MG/DL (8.5-10.1); CHLORIDE 101 MEQ/L (98-107); CREATININE 0.51 MG/DL (0.60-1.30); GLOMERULAR FILTRATION RATE 172 ML/MIN (>89); GLUCOSE,RANDOM 88 MG/DL (74-106); LIPASE 701 U/L (73-393); SODIUM (NA) 138 MEQ/L (136-145)
[2017-08-11 06:33] LABS: ALKALINE PHOSPHATASE 68 U/L (45-117); ALT (GPT) 11 U/L (12-78); TOTAL BILIRUBIN ADULT 0.3 MG/DL (0.2-1.0); TOTAL PROTEIN 6.2 GM/DL (6.4-8.2)
[2017-08-11 08:00] VITALS: BP 147/94; PULSE 59; RESP 17; TEMP 97.4; O2SAT 95
[2017-08-11] MEDS: POLYETHYLENE GLYCOL 17 GM PKG PO SCH (09:00)
[2017-08-11] MEDS: DOCUSATE SODIUM 50 MG/SENNA 8.6 MG TAB PO SCH ×2 (09:00→20:18)
[2017-08-11] MEDS: ATENOLOL 50 MG TAB PO SCH (10:05)
--- NOTE | 2017-08-11 11:03 | HHI.PR ---
cc: Brad Alexis MD Subjective Subjective Notes Resting in bed; awaiting procedure today with GI Objective Vitals/I&O Vital Signs Date Time Temp Pulse Resp B/P (MAP) Pulse Ox O2 Delivery O2 Flow Rate FiO2 08/11/17 08:00 97.4 59 17 147/94 (111) 95 08/08/17 14:21 Room Air Labs Laboratory Tests Test 08/11/17 04:29 White Blood Count 7.4 Red Blood Count 3.90 Hemoglobin 13.1 Hematocrit 38.7 Mean Corpuscular Volume 99.3 Mean Corpuscular Hemoglobin 33.5 Mean Corpuscular Hemoglobin Concent 33.7 Red Cell Distribution Width 14.7 Platelet Count 216 Mean Platelet Volume 9.6 Neutrophils (%) (Auto) 49.6 Lymphocytes (%) (Auto) 39.4 Monocytes (%) (Auto) 7.7 Eosinophils (%) (Auto) 2.7 Basophils (%) (Auto) 0.6 Neutrophils # (Auto) 3.7 Lymphocytes # (Auto) 2.9 Monocytes # (Auto) 0.6 Eosinophils # (Auto) 0.2 Basophils # (Auto) 0.0 CBC Comment DIFF FINAL Differential Comment Blood Urea Nitrogen 3 Creatinine 0.51 Random Glucose 88 Total Protein 6.2 Albumin 2.4 Calcium Level 8.3 Alkaline Phosphatase 68 Aspartate Amino Transf (AST/SGOT) 12 Alanine Aminotransferase (ALT/SGPT) 11 Total Bilirubin 0.3 Sodium Level 138 Potassium Level 3.4 Chloride Level 101 Carbon Dioxide Level 28.7 Anion Gap 8 Estimat Glomerular Filtration Rate 172 Lipase 701 Cardiovascular: Regular Lungs: Clear Abdomen: Non-distended, Non-tender Extremities: No edema A/P Assessment and Plan 52 year old male with large distal pancreatic pseudocyst -GI planning US transgastric drainage today -NPO for procedure -Will be available if needed Attending Note - Dr. Alexis Nothing to add Abdomen unchanged The exam, history, and the medical decision-making described in the above note were completed with the assistance of the mid-level provider. I reviewed and agree with the findings presented. I attest that I had a [id number] encounter with the patient on the same day, and personally performed and documented my assessment and findings in the medical record. Kathia Cormier Aug 11, 2017 11:03 Brad Alexis MD Aug 12, 2017 19:54
[2017-08-11 12:00] VITALS: BP 165/95; PULSE 67; RESP 17; TEMP 98.4; O2SAT 95
--- NOTE | 2017-08-11 13:22 | HHI.PR ---
Subjective Remarks Follow-up for pancreatic pseudocyst. Patient is currently doing well. He complains of left-sided abdominal pain. No nausea or vomiting. Waiting for EUS today. Objective Vitals Vital Signs Date Time Temp Pulse Resp B/P (MAP) Pulse Ox O2 Delivery O2 Flow Rate FiO2 08/11/17 12:00 98.4 67 17 165/95 (118) 95 08/11/17 08:00 97.4 59 17 147/94 (111) 95 08/11/17 04:15 98.2 58 18 143/88 (106) 98 08/11/17 00:28 98.0 65 18 139/87 (104) 98 08/10/17 20:10 97.9 60 18 144/93 (110) 99 08/10/17 15:34 99.1 70 18 131/86 (101) 98 I/O 08/10/17 08/10/17 08/10/17 08/11/17 08/11/17 08/11/17 07:00 15:00 23:00 07:00 15:00 23:00 Intake Total 1945 ml 1171 ml 240 ml 1403 ml Balance 1945 ml 1171 ml 240 ml 1403 ml Intake Oral 0 ml 800 ml 240 ml 0 ml IV Total 1945 ml 371 ml 1403 ml # Voids 3 5 2 3 # Bowel Movements 0 0 1 0 Result Diagram: 08/11/17 0429 08/11/17 0429 Imaging Last Impressions Abdomen/Pelvis CT 08/08/17 1417 Signed Impressions: Service Date/Time: Tuesday, August 08, 2017 15:58 - CONCLUSION: 1. 15 cm pseudocyst is present dilated pancreatic duct stone the pancreas. 2. Trace free fluid in the pelvis there Mikel Carrillo MD FACR Objective Remarks GENERAL: Alert, oriented 3, NAD. SKIN: Warm and dry. HEAD: Normocephalic. EYES: No scleral icterus. No injection or drainage. NECK: Supple, trachea midline. No JVD or lymphadenopathy. CARDIOVASCULAR: Regular rate and rhythm without murmurs, gallops, or rubs. RESPIRATORY: Breath sounds equal bilaterally. No accessory muscle use. GASTROINTESTINAL: Abdomen soft the right side. There is a large mass palpated over the left side of the abdomen and tender to palpation. MUSCULOSKELETAL: No cyanosis, or edema. BACK: Nontender without obvious deformity. No CVA tenderness. Procedures None A/P Assessment and Plan 52 year old male admitted with abdominal pain and left abdominal distention and tenderness. Imaging shows evidence of pancreatic pseudocyst. Stone present, possibly pancreatic duct. EUS (for possible cyst drainage) - Pancreatic pseudocyst - Acute pancreatitis - GI following. EUS with possible transgastric drainage of pseudocyst. - Possible ERCP with stone extraction, stent placement. - Currently on Morphine 2mg Q4h PRN. - Currently on Protonix 40 mg IV every 12 hours. We can likely switch to Protonix by mouth daily when okay with GI. - Hypertension - currently on atenolol 50 mg daily which is not a first-line choice for hypertension. - We'll start patient on amlodipine 5 mg daily. Possibly wean off better justo. Full code. SCDs. Rena Elizabeth DO Aug 11, 2017 1:22 pm
[2017-08-11] MEDS ORDERED: amLODIPine BESYLATE 5 MG TAB PO ONE (15:15)
[2017-08-11] MEDS: PANTOPRAZOLE SODIUM 40 MG VIAL IV PUSH SCH ×2 (15:52→20:18)
[2017-08-11 16:00] VITALS: BP 157/94; PULSE 69; RESP 16; TEMP 96.2; O2SAT 91
--- NOTE | 2017-08-11 16:27 | HHI.GIFU ---
Subjective Remarks Pt resting in bed in NAD, pain well controlled, family at bedside. Asking for food. No procedure today, awaiting stent. (Reyna Cramer) Objective Vitals I&O Vital Signs Date Time Temp Pulse Resp B/P (MAP) Pulse Ox O2 Delivery O2 Flow Rate FiO2 08/11/17 12:00 98.4 67 17 165/95 (118) 95 08/11/17 08:00 97.4 59 17 147/94 (111) 95 08/11/17 04:15 98.2 58 18 143/88 (106) 98 08/11/17 00:28 98.0 65 18 139/87 (104) 98 08/10/17 20:10 97.9 60 18 144/93 (110) 99 I/O 08/10/17 08/10/17 08/10/17 08/11/17 08/11/17 08/11/17 07:00 15:00 23:00 07:00 15:00 23:00 Intake Total 1945 ml 1171 ml 240 ml 1403 ml Balance 1945 ml 1171 ml 240 ml 1403 ml Intake Oral 0 ml 800 ml 240 ml 0 ml IV Total 1945 ml 371 ml 1403 ml # Voids 3 5 2 3 # Bowel Movements 0 0 1 0 Laboratory Laboratory Tests Test 08/11/17 04:29 White Blood Count 7.4 Red Blood Count 3.90 Hemoglobin 13.1 Hematocrit 38.7 Mean Corpuscular Volume 99.3 Mean Corpuscular Hemoglobin 33.5 Mean Corpuscular Hemoglobin Concent 33.7 Red Cell Distribution Width 14.7 Platelet Count 216 Mean Platelet Volume 9.6 Neutrophils (%) (Auto) 49.6 Lymphocytes (%) (Auto) 39.4 Monocytes (%) (Auto) 7.7 Eosinophils (%) (Auto) 2.7 Basophils (%) (Auto) 0.6 Neutrophils # (Auto) 3.7 Lymphocytes # (Auto) 2.9 Monocytes # (Auto) 0.6 Eosinophils # (Auto) 0.2 Basophils # (Auto) 0.0 CBC Comment DIFF FINAL Differential Comment Blood Urea Nitrogen 3 Creatinine 0.51 Random Glucose 88 Total Protein 6.2 Albumin 2.4 Calcium Level 8.3 Alkaline Phosphatase 68 Aspartate Amino Transf (AST/SGOT) 12 Alanine Aminotransferase (ALT/SGPT) 11 Total Bilirubin 0.3 Sodium Level 138 Potassium Level 3.4 Chloride Level 101 Carbon Dioxide Level 28.7 Anion Gap 8 Estimat Glomerular Filtration Rate 172 Lipase 701 Imaging Last Impressions Abdomen/Pelvis CT 08/08/17 1417 Signed Impressions: Service Date/Time: Tuesday, August 08, 2017 15:58 - CONCLUSION: 1. 15 cm pseudocyst is present dilated pancreatic duct stone the pancreas. 2. Trace free fluid in the pelvis there Mikel Carrillo MD FACR Physical Exam HEENT: Normocephalic; atraumatic CHEST: Even/unlabored CARDIAC: RRR ABDOMEN: Left side firm and distended, nontender, bowel sounds active EXTREMITIES: No clubbing, cyanosis, or edema. SKIN: Normal; no rash; no jaundice. INFORMATION TECHNOLOGY SECURITY ANALYST: No focal deficits; alert and oriented times three. (Reyna Cramer [facility]) Assessment and Plan Plan Assessment: - Pancreatic pseudocyst- Pt reports unintentional weight loss, severe epigastric pain and burning, nausea, and growing mass to left side of his abdomen since April. Previously heavy drinker, quit ETOH May 09 and changed his diet with no relief of symptoms. Does report one episode of pancreatitis approx [address] abdomen and pelvis with IV contrast (08/08) noted --> 15cm pseudocyst is present dilated pancreatic duct stone in the pancreas. Trace free fluid in the pelvis area. Lipase 1216. - Anemia- Currently 12.9/38.2 drop from 15/43.9 yesterday. Could be partially dilutional from IV fluids. No obvious GIB. However, pt does report taking Ibuprofen 2 tabs q 6hrs for epigastric pain for the past few weeks and prior to that was taking BC powder. Has never had EGD or colonoscopy (08/09) Pt tolerating clear liquids, denies nausea and vomiting. Reports abdominal pain this morning resolved with pain medication. States has not had a BM feels like he needs to have one. Dr. Graham spoke with regarding pts case, plan will be EUS with possible transgastric drainage of pseudocyst tomorrow and possible ercp with pancreatic stone extraction. Keep pt NPO after MN. CEA-2.7 [id number] Lipase improved to 436 today. 08/11/16 - procedure postponed till tomorrow, awaiting stent. Pt on clear liquid diet. Quality Control Tech today, not tender on exam. still distended and firm in LUQ. will make NPO after MN in preparation for procedures tomorrow. Plan: - EUS with possible transgastric drainage of pseudocyst, likely tomorrow - Possible ERCP with pancreatic stone extraction - Clear liquids now - NPO after MN - Monitor labs - Monitor H/H - Transfuse as needed - Supportive care - Further recommendations to follow based on results of above Pt has been seen and examined by myself and Dr. Schroeder and this note is written on his behalf (Reyna Cramer) Physician Comments Patient seen and examined Agree with above Continue with current supportive care Monitor labs (Merritt Schroeder MD) Reyna Cramer Aug 11, 2017 16:27 Merritt Schroeder MD Aug 13, 2017 00:52
[2017-08-11 20:00] VITALS: BP 136/81; PULSE 71; RESP 15; TEMP 96.8; O2SAT 95
[2017-08-11] MEDS: SODIUM CHLORIDE 0.9% FLUSH 10 ML FLUSH IV FLUSH SCH (20:21)
[2017-08-12] VITALS (7 sets, daily range): BP systolic 133–170; BP diastolic 84–95; PULSE 61–69; RESP 15–18; TEMP 96.1–97.7; O2SAT 92–97
--- NOTE | 2017-08-12 00:08 | HHI.GIFU ---
Subjective Remarks Patient comfortable in bed denies any pain nausea or vomiting talking on the telephone Objective Vitals I&O Vital Signs Date Time Temp Pulse Resp B/P (MAP) Pulse Ox O2 Delivery O2 Flow Rate FiO2 08/11/17 17:09 16 08/11/17 16:00 96.2 69 16 157/94 (115) 91 08/11/17 12:00 98.4 67 17 165/95 (118) 95 08/11/17 08:00 97.4 59 17 147/94 (111) 95 08/11/17 04:15 98.2 58 18 143/88 (106) 98 08/11/17 00:28 98.0 65 18 139/87 (104) 98 I/O 08/11/17 08/11/17 08/11/17 08/12/17 08/12/17 08/12/17 07:00 15:00 23:00 07:00 15:00 23:00 Intake Total 1403 ml 0 ml Balance 1403 ml 0 ml Intake Oral 0 ml 0 ml IV Total 1403 ml # Voids 3 7 # Bowel Movements 0 0 Laboratory Laboratory Tests Test 08/11/17 04:29 White Blood Count 7.4 Red Blood Count 3.90 Hemoglobin 13.1 Hematocrit 38.7 Mean Corpuscular Volume 99.3 Mean Corpuscular Hemoglobin 33.5 Mean Corpuscular Hemoglobin Concent 33.7 Red Cell Distribution Width 14.7 Platelet Count 216 Mean Platelet Volume 9.6 Neutrophils (%) (Auto) 49.6 Lymphocytes (%) (Auto) 39.4 Monocytes (%) (Auto) 7.7 Eosinophils (%) (Auto) 2.7 Basophils (%) (Auto) 0.6 Neutrophils # (Auto) 3.7 Lymphocytes # (Auto) 2.9 Monocytes # (Auto) 0.6 Eosinophils # (Auto) 0.2 Basophils # (Auto) 0.0 CBC Comment DIFF FINAL Differential Comment Blood Urea Nitrogen 3 Creatinine 0.51 Random Glucose 88 Total Protein 6.2 Albumin 2.4 Calcium Level 8.3 Alkaline Phosphatase 68 Aspartate Amino Transf (AST/SGOT) 12 Alanine Aminotransferase (ALT/SGPT) 11 Total Bilirubin 0.3 Sodium Level 138 Potassium Level 3.4 Chloride Level 101 Carbon Dioxide Level 28.7 Anion Gap 8 Estimat Glomerular Filtration Rate 172 Lipase 701 Physical Exam HEENT: Normocephalic; atraumatic CHEST: Even/unlabored CARDIAC: RRR ABDOMEN: Left side firm and distended, nontender, bowel sounds active EXTREMITIES: No clubbing, cyanosis, or edema. SKIN: Normal; no rash; no jaundice. FIELD ME[employer] MET[employer] TESTER: No focal deficits; alert and oriented times three. Assessment and Plan Plan Assessment: - Pancreatic pseudocyst- Pt reports unintentional weight loss, severe epigastric pain and burning, nausea, and growing mass to left side of his abdomen since April. Previously heavy drinker, quit ETOH May 09 and changed his diet with no relief of symptoms. Does report one episode of pancreatitis approx [address] abdomen and pelvis with IV contrast (08/08) noted --> 15cm pseudocyst is present dilated pancreatic duct stone in the pancreas. Trace free fluid in the pelvis area. Lipase 1216. - Anemia- Currently 12.9/38.2 drop from 15/43.9 yesterday. Could be partially dilutional from IV fluids. No obvious GIB. However, pt does report taking Ibuprofen 2 tabs q 6hrs for epigastric pain for the past few weeks and prior to that was taking BC powder. Has never had EGD or colonoscopy (08/09) Pt tolerating clear liquids, denies nausea and vomiting. Reports abdominal pain this morning resolved with pain medication. States has not had a BM feels like he needs to have one. Dr. Graham spoke with regarding pts case, plan will be EUS with possible transgastric drainage of pseudocyst tomorrow and possible ercp with pancreatic stone extraction. Keep pt NPO after MN. CEA-2.7 [id number] Lipase improved to 436 today. 08/11/16 - procedure postponed till tomorrow, awaiting stent. Pt on clear liquid diet. [employer] today, not tender on exam. still distended and firm in LUQ. will make NPO after MN in preparation for procedures tomorrow. Plan: - EUS with possible transgastric drainage of pseudocyst, likely tomorrow - Possible ERCP with pancreatic stone extraction this will be done a few days after cyst drainage - Clear liquids now - NPO after MN - Monitor labs - Monitor H/H - Transfuse as needed - Supportive care - Further recommendations to follow based on results of above Merritt Schroeder MD Aug 12, 2017 00:08
[2017-08-12] MEDS: MORPHINE SULFATE 2 MG/ML INJ IV PUSH PRN ×4 (03:52→20:47)
[2017-08-12] MEDS: SODIUM CHLOR 0.9% 1000 ML INJ 1,000 ML IV SCH ×3 (03:53→18:22)
[2017-08-12] MEDS: DOCUSATE SODIUM 50 MG/SENNA 8.6 MG TAB PO SCH ×2 (08:46→21:00)
[2017-08-12] MEDS: amLODIPine BESYLATE 5 MG TAB PO SCH (08:47)
[2017-08-12] MEDS: ATENOLOL 50 MG TAB PO SCH (08:47)
[2017-08-12] MEDS: PANTOPRAZOLE SODIUM 40 MG VIAL IV PUSH SCH ×2 (08:49→20:00)
[2017-08-12] MEDS: SODIUM CHLORIDE 0.9% FLUSH 10 ML FLUSH IV FLUSH SCH ×2 (08:49→21:00)
[2017-08-12] MEDS: POLYETHYLENE GLYCOL 17 GM PKG PO SCH (08:50)
--- NOTE | 2017-08-12 11:05 | HHI.PR ---
cc: Brad Alexis MD Subjective Subjective Notes In good spirits Family at bedside Awaiting EUS today with stent placement Objective Vitals/I&O Vital Signs Date Time Temp Pulse Resp B/P (MAP) Pulse Ox O2 Delivery O2 Flow Rate FiO2 08/12/17 07:33 97.2 64 18 170/95 (120) 97 08/08/17 14:21 Room Air Cardiovascular: Regular Lungs: Clear Abdomen: Non-distended, Non-tender Extremities: No edema A/P Assessment and Plan 52 year old male with large distal pancreatic pseudocyst -GI planning US transgastric drainage today with stent -Procedure delayed to ensure proper stent availability -NPO for procedure -Will be available if needed Attending Note - Dr. Alexis Discussed with patient Stent placement successful. Will see as needed; Dr. Schroeder to monitor and attempt to extract pacreatic duct stone. The exam, history, and the medical decision-making described in the above note were completed with the assistance of the mid-level provider. I reviewed and agree with the findings presented. I attest that I had a [id number] encounter with the patient on the same day, and personally performed and documented my assessment and findings in the medical record. Kathia Cormier Aug 12, 2017 11:05 Brad Alexis MD Aug 12, 2017 20:03
[2017-08-12] MEDS ORDERED: LIDOCAINE HCL 1% PF 5 ML SYRINGE OTHER ONE (12:00)
[2017-08-12] MEDS ORDERED: DEXAMETHASONE SOD PHOS 4 MG/ML VIAL IV ONE (12:00)
[2017-08-12] MEDS ORDERED: PROPOFOL 200 MG/20 ML AMP IV ONE (12:00)
[2017-08-12] MEDS ORDERED: ONDANSETRON HCL 4 MG/2 ML VIAL IV PUSH ONE (12:00)
[2017-08-12] MEDS ORDERED: DO NOT ADM ANY ANTICOAGULANT DRUGS PRN (14:55)
--- NOTE | 2017-08-12 15:07 | PD.PROCEDR ---
GI Procedure PROCEDURE PERFORMED EGD followed by an endoscopic ultrasound with FNA and cyst gastrostomy INDICATION FOR PROCEDURE Large abdominal cyst thought to be a pancreatic pseudocyst PROCEDURE: The procedure, risks and benefits were discussed with Mr. Whitley and informed consent was obtained. Anesthesia sedated him with Diprivan. He was placed in the left lateral decubitus position. EGD: The Pentax videoscope was introduced through the oropharynx and advanced to the second portion of the duodenum under direct visualization. Retroflexion was performed in the stomach. FINDINGS: The esophagus this was unremarkable The stomach there was some mild gastric mucosal erythema throughout but most impressive was a large cystic imprint on the posterior wall otherwise no ulcers or erosions The duodenum this was unremarkable and within normal limits Endoscopic ultrasound: The Pentax videoscope was introduced through the oropharynx and advanced to the second portion of the duodenum under direct visualization. Retroflexion was performed in the stomach FINDINGS: Using the linear scope we identified a huge cyst impinging on the posterior wall of the stomach fine-needle aspiration was performed and the contents were sent for analysis we used the 19-gauge needle then a guidewire was placed into the cyst and over that the axios stent system was advanced and the cyst was pierced and the axios stent was deployed and good drainage was seen ESTIMATED BLOOD LOSS: None SPECIMENS REMOVED: Cyst aspirate COMPLICATIONS: None IMPRESSION: Large abdominal cyst probable pseudocyst of the pancreas status post drainage PLAN: Contents of the cyst to be analyzed Clear liquid diet for today Probably advance diet tomorrow and possible discharge Patient will need an ERCP next week Patient will need an EGD with stent removal in 4 weeks Merritt Schroeder MD Aug 12, 2017 15:07
--- NOTE | 2017-08-12 16:59 | HHI.PR ---
Objective Vitals Vital Signs Date Time Temp Pulse Resp B/P (MAP) Pulse Ox O2 Delivery O2 Flow Rate FiO2 08/12/17 16:00 96.1 69 18 151/92 (111) 96 08/12/17 15:14 73 16 134/81 (98) 100 Room Air 08/12/17 15:05 77 16 138/95 (109) 100 Room Air 08/12/17 14:54 98.1 81 16 143/86 (105) 100 Room Air 08/12/17 11:48 97.7 65 18 138/85 (102) 92 08/12/17 07:33 97.2 64 18 170/95 (120) 97 08/12/17 04:00 97.6 67 15 141/91 (108) 95 08/12/17 00:00 97.2 61 15 133/84 (100) 92 08/11/17 20:00 96.8 71 15 136/81 (99) 95 08/11/17 17:09 16 I/O 08/11/17 08/11/17 08/11/17 08/12/17 08/12/17 08/12/17 07:00 15:00 23:00 07:00 15:00 23:00 Intake Total 1403 ml 0 ml 600 ml 700 ml Balance 1403 ml 0 ml 600 ml 700 ml Intake Oral 0 ml 0 ml 600 ml IV Total 1403 ml Other 700 ml # Voids 3 7 6 6 # Bowel Movements 0 0 0 Result Diagram: 08/11/17 0429 08/11/17 0429 Objective Remarks GENERAL: Alert, oriented 3, NAD. SKIN: Warm and dry. HEAD: Normocephalic. EYES: No scleral icterus. No injection or drainage. NECK: Supple, trachea midline. No JVD or lymphadenopathy. CARDIOVASCULAR: Regular rate and rhythm without murmurs, gallops, or rubs. RESPIRATORY: Breath sounds equal bilaterally. No accessory muscle use. GASTROINTESTINAL: Abdomen soft the right side. There is a large mass palpated over the left side of the abdomen and tender to palpation. MUSCULOSKELETAL: No cyanosis, or edema. BACK: Nontender without obvious deformity. No CVA tenderness. Procedures None A/P Assessment and Plan 52 year old male admitted with abdominal pain and left abdominal distention and tenderness. Imaging shows evidence of pancreatic pseudocyst. Stone present, possibly pancreatic duct. EUS (for possible cyst drainage) - Pancreatic pseudocyst - Acute pancreatitis - GI following. EUS with possible transgastric drainage of pseudocyst. - Possible ERCP with stone extraction, stent placement. - Currently on Morphine 2mg Q4h PRN. - Currently on Protonix 40 mg IV every 12 hours. We can likely switch to Protonix by mouth daily when okay with GI. - Hypertension - currently on atenolol 50 mg daily which is not a first-line choice for hypertension. - We'll start patient on amlodipine 5 mg daily. Possibly wean off better justo. Full code. SCDs. Rena Elizabeth DO Aug 12, 2017 16:59
--- NOTE | 2017-08-12 21:02 | HHI.PR ---
Addendum to Inpatient Note Additional Information Patient was in GI lab. Discussed with family members in the room. No acute concerns. Patient went to GI lab for pseudocyst drainage. Likely discharge in the AM. Rena Elizabeth DO Aug 12, 2017 21:02
[2017-08-13 00:30] VITALS: BP 130/80; PULSE 71; RESP 16; TEMP 97; O2SAT 96
[2017-08-13] MEDS: MORPHINE SULFATE 2 MG/ML INJ IV PUSH PRN ×3 (01:07→11:30)
[2017-08-13] MEDS: SODIUM CHLOR 0.9% 1000 ML INJ 1,000 ML IV SCH ×2 (02:22→10:22)
[2017-08-13 04:20] VITALS: BP 136/86; PULSE 70; RESP 16; TEMP 97; O2SAT 97
[2017-08-13 08:00] VITALS: BP 145/81; PULSE 83; RESP 18; TEMP 98.3; O2SAT 98
[2017-08-13] MEDS: POLYETHYLENE GLYCOL 17 GM PKG PO SCH (09:00)
[2017-08-13] MEDS: ATENOLOL 50 MG TAB PO SCH (09:14)
[2017-08-13] MEDS: amLODIPine BESYLATE 5 MG TAB PO SCH (09:14)
[2017-08-13] MEDS: PANTOPRAZOLE SODIUM 40 MG VIAL IV PUSH SCH (09:15)
[2017-08-13] MEDS: DOCUSATE SODIUM 50 MG/SENNA 8.6 MG TAB PO SCH (09:15)
[2017-08-13] MEDS: SODIUM CHLORIDE 0.9% FLUSH 10 ML FLUSH IV FLUSH SCH (09:16)
[2017-08-13 09:29] LABS: HEMATOCRIT 40.3 % (39.0-51.0); HEMOGLOBIN 13.7 GM/DL (13.0-17.0); MEAN CORPUSCULAR HEMOGLOBIN 33.4 PG (27.0-34.0); MEAN CORPUSCULAR HGB CONC 34.1 % (32.0-36.0); MEAN PLATELET VOLUME 10.2 FL (7.0-11.0); PLATELET COUNT 211 TH/MM3 (150-450); RED BLOOD COUNT 4.11 MIL/MM3 (4.50-5.90); RED CELL DISTRIBUTION WIDTH 14.8 % (11.6-17.2); WHITE BLOOD COUNT 11.7 TH/MM3 (4.0-11.0)
[2017-08-13 10:02] LABS: ALBUMIN 2.6 GM/DL (3.4-5.0); AST (GOT) 14 U/L (15-37); BICARBONATE 27.8 MEQ/L (21.0-32.0); BLOOD UREA NITROGEN 3 MG/DL (7-18); CALCIUM 8.3 MG/DL (8.5-10.1); CHLORIDE 101 MEQ/L (98-107); CREATININE 0.54 MG/DL (0.60-1.30); GLOMERULAR FILTRATION RATE 161 ML/MIN (>89); GLUCOSE,RANDOM 104 MG/DL (74-106); SODIUM (NA) 136 MEQ/L (136-145)
[2017-08-13 10:03] LABS: ALT (GPT) 15 U/L (12-78)
[2017-08-13 10:07] LABS: ALKALINE PHOSPHATASE 73 U/L (45-117); TOTAL BILIRUBIN ADULT 0.3 MG/DL (0.2-1.0); TOTAL PROTEIN 6.7 GM/DL (6.4-8.2)
[2017-08-13] MEDS ORDERED: NORC5TAB PO ×2 (11:26→12:31)
[2017-08-13] MEDS ORDERED: AMLO5 PO ×2 (11:26→12:31)
[2017-08-13] MEDS ORDERED: ATEN50TA PO ×2 (11:26→12:31)
--- NOTE | 2017-08-13 11:28 | HHI.DS ---
Discharge Summary Admission Date Aug 08, 2017 at 5:12 pm Discharge Date: Aug 13, 2017 Admitting Diagnosis LARGE PSEUDOCYST,ACUTE PANCREATITIS (1) Pancreatic cyst ICD Code: K86.2 - Cyst of pancreas (2) Acute pancreatitis ICD Code: K85.90 - Acute pancreatitis without necrosis or infection, unspecified Procedures 08/12/2017 EGD, EUS The esophagus this was unremarkable The stomach there was some mild gastric mucosal erythema throughout but most impressive was a large cystic imprint on the posterior wall otherwise no ulcers or erosions The duodenum this was unremarkable and within normal limits Using the linear scope we identified a huge cyst impinging on the posterior wall of the stomach fine-needle aspiration was performed and the contents were sent for analysis we used the 19-gauge needle then a guidewire was placed into the cyst and over that the axios stent system was advanced and the cyst was pierced and the axios stent was deployed and good drainage was seen Brief History - From Admission 52-year-old male with a past medical history significant for hypertension presents to the emergency department for evaluation of abdominal pain, nausea and a left sided abdominal mass that has been increasing in size since April. The patient reports that he first started noticing abdominal pain with associated anorexia in April. He states he's had a 20 pound weight loss since that time. Approximately 3 weeks ago he first noticed a lump on the left side of his mid abdomen. He states it is hard and feels like an avocado. There is pain associated with this lump and it is worse with palpation. The patient reports that he was a daily drinker until the abdominal pain started in April. He reports drinking only twice since that time most recently on s Chantal. He reports the pain was excruciating following alcohol ingestion on Chantal. Vitals: Temperature 98.4, pulse 113, respiratory rate 16, BP 178/104, pulse ox 96% on room air. CT of the abdomen/pelvis significant for a pseudocyst with dilated pancreatic duct. Lipase 1248. CBC/BMP: 08/13/17 0733 08/13/17 0733 Significant Findings Laboratory Tests Test 08/11/17 04:29 08/12/17 14:10 08/13/17 07:33 Red Blood Count 3.90 MIL/MM3 (4.50-5.90) 4.11 MIL/MM3 (4.50-5.90) Hematocrit 38.7 % (39.0-51.0) Blood Urea Nitrogen 3 MG/DL (7-18) 3 MG/DL (7-18) Creatinine 0.51 MG/DL (0.60-1.30) 0.54 MG/DL (0.60-1.30) Total Protein 6.2 GM/DL (6.4-8.2) Albumin 2.4 GM/DL (3.4-5.0) 2.6 GM/DL (3.4-5.0) Calcium Level 8.3 MG/DL (8.5-10.1) 8.3 MG/DL (8.5-10.1) Aspartate Amino Transf (AST/SGOT) 12 U/L (15-37) 14 U/L (15-37) Alanine Aminotransferase (ALT/SGPT) 11 U/L (12-78) Potassium Level 3.4 MEQ/L (3.5-5.1) 3.4 MEQ/L (3.5-5.1) Lipase 701 U/L (73-393) White Blood Count 11.7 TH/MM3 (4.0-11.0) Imaging Last Impressions Abdomen/Pelvis CT 08/08/17 0177 Signed Impressions: Service Date/Time: Tuesday, August 08, 2017 15:58 - CONCLUSION: 1. 15 cm pseudocyst is present dilated pancreatic duct stone the pancreas. 2. Trace free fluid in the pelvis there Mikel Carrillo MD FACR PE at Discharge GENERAL: Alert, oriented 3, NAD. SKIN: Warm and dry. HEAD: Normocephalic. EYES: No scleral icterus. No injection or drainage. NECK: Supple, trachea midline. No JVD or lymphadenopathy. CARDIOVASCULAR: Regular rate and rhythm without murmurs, gallops, or rubs. RESPIRATORY: Breath sounds equal bilaterally. No accessory muscle use. GASTROINTESTINAL: Abdomen soft the right side. There is a large mass palpated over the left side of the abdomen and tender to palpation. MUSCULOSKELETAL: No cyanosis, or edema. BACK: Nontender without obvious deformity. No CVA tenderness. Pt update on day of discharge Patient underwent EGD, EUS with pancreatic pseudocyst drainage on 08/12/2017. GI cleared for discharge. Patient feels back to baseline. His abdominal pain is resolved. He is excited about going home. Hospital Course 52 year old male admitted with abdominal pain and left abdominal distention and tenderness. Imaging shows evidence of pancreatic pseudocyst. Stone present, possibly pancreatic duct. EUS (for possible cyst drainage) - Pancreatic pseudocyst - Acute pancreatitis - GI following. EGD, EUS with transgastric drainage of pseudocyst completed on 08/12/2017. - Post procedure, he reported complete resolution of his symptoms of abdominal pain, distention. - Hypertension - currently on atenolol 50 mg daily. Patient has been on this medication for sometime. He is encouraged to discuss with his PCP regarding switching to a first line anti-hypertensive medication. Pt Condition on Discharge: Good Discharge Disposition: Discharge Home Discharge Time: <= 30 minutes Discharge Instructions DIET: Follow Instructions for: As Tolerated, No Restrictions Additional Diet Instructions: Try to avoid rich food at least for the next several days. Activities you can perform: Regular-No Restrictions Follow up Referrals: Gastroenterology - 1 Week with Merritt Schroeder MD New Medications: Hydrocodone-Acetaminophen (Spencer) 5 Mg-325 Mg Tab 1 TAB PO Q6H PRN for PAIN, #20 TAB 0 Refills Amlodipine (Norvasc) 5 Mg Tab 5 MG PO DAILY for Blood Pressure Management, #90 TAB Atenolol (Atenolol) 50 Mg Tab 50 MG PO DAILY for Blood Pressure Management, #90 TAB Home med Continued Medications: Ranitidine (Ranitidine) 150 Mg Tab 150 MG PO BID for Heartburn Management, #1 TAB 0 Refills Discontinued Medications: Chlordiazepoxide Hcl (Librium) 25 Mg Cap 25 MG PO TID, #15 Miscellaneous (No Current Meds) Floryc Rena Elizabeth DO Aug 13, 2017 11:28
--- NOTE | 2017-08-13 11:33 | HHI.PR ---
cc: Brad Alexis MD Subjective Subjective Notes Resting in bed No issues Objective Vitals/I&O Vital Signs Date Time Temp Pulse Resp B/P (MAP) Pulse Ox O2 Delivery O2 Flow Rate FiO2 08/13/17 08:00 98.3 83 18 145/81 (102) 98 08/12/17 20:23 21 08/12/17 15:14 Room Air Labs Laboratory Tests Test 08/12/17 14:10 08/13/17 07:33 Miscellaneous Test Result [id number] Miscellaneous Test Comment White Blood Count 11.7 Red Blood Count 4.11 Hemoglobin 13.7 Hematocrit 40.3 Mean Corpuscular Volume 98.0 Mean Corpuscular Hemoglobin 33.4 Mean Corpuscular Hemoglobin Concent 34.1 Red Cell Distribution Width 14.8 Platelet Count 211 Mean Platelet Volume 10.2 Blood Urea Nitrogen 3 Creatinine 0.54 Random Glucose 104 Total Protein 6.7 Albumin 2.6 Calcium Level 8.3 Alkaline Phosphatase 73 Aspartate Amino Transf (AST/SGOT) 14 Alanine Aminotransferase (ALT/SGPT) 15 Total Bilirubin 0.3 Sodium Level 136 Potassium Level 3.4 Chloride Level 101 Carbon Dioxide Level 27.8 Anion Gap 7 Estimat Glomerular Filtration Rate 161 Cardiovascular: Regular Lungs: Clear Abdomen: Non-distended, Non-tender Extremities: No edema A/P Assessment and Plan 52 year old male with large distal pancreatic pseudocyst -s/p US transgastric drainage with stent yesterday -Clear liquids; advanced per GI -GS clear for DC -No need to follow up in office unless needed Attending Note - Dr. Alexis Stable after drainage; mass resolved Will see as needed; discussed with Dr. Schroeder; he will work to remove pancreatic duct stone after cyst has a few days to resolve. The exam, history, and the medical decision-making described in the above note were completed with the assistance of the mid-level provider. I reviewed and agree with the findings presented. I attest that I had a [id number] encounter with the patient on the same day, and personally performed and documented my assessment and findings in the medical record. Kathia Cormier Aug 13, 2017 11:33 Brad Alexis MD Aug 13, 2017 19:16
[2017-08-13 11:35] VITALS: RESP 17
--- NOTE | 2017-08-13 11:46 | HHI.GIFU ---
Subjective Remarks The patient's doing well today. He stated some epigastric pain -probably where the stent was placed- that has subsided. Denies any nausea or vomiting. His appetite is good. He had good bowel movements. No feeling of fullness. (Reyna Cramer) Objective Vitals I&O Vital Signs Date Time Temp Pulse Resp B/P (MAP) Pulse Ox O2 Delivery O2 Flow Rate FiO2 08/13/17 08:00 98.3 83 18 145/81 (102) 98 08/13/17 04:20 97.0 70 16 136/86 (103) 97 08/13/17 00:30 97.0 71 16 130/80 (97) 96 08/12/17 20:23 96 21 08/12/17 20:10 97.1 61 16 160/92 (114) 97 08/12/17 16:00 96.1 69 18 151/92 (111) 96 08/12/17 15:14 73 16 134/81 (98) 100 Room Air 08/12/17 15:05 77 16 138/95 (109) 100 Room Air 08/12/17 14:54 98.1 81 16 143/86 (105) 100 Room Air 08/12/17 11:48 97.7 65 18 138/85 (102) 92 I/O 08/12/17 08/12/17 08/12/17 08/13/17 08/13/17 08/13/17 07:00 15:00 23:00 07:00 15:00 23:00 Intake Total 600 ml 700 ml 720 ml 600 ml Balance 600 ml 700 ml 720 ml 600 ml Intake Oral 600 ml 720 ml 600 ml Other 700 ml # Voids 6 6 2 4 # Bowel Movements 0 0 0 Laboratory Laboratory Tests Test 08/12/17 14:10 08/13/17 07:33 Miscellaneous Test Result [id number] Miscellaneous Test Comment White Blood Count 11.7 Red Blood Count 4.11 Hemoglobin 13.7 Hematocrit 40.3 Mean Corpuscular Volume 98.0 Mean Corpuscular Hemoglobin 33.4 Mean Corpuscular Hemoglobin Concent 34.1 Red Cell Distribution Width 14.8 Platelet Count 211 Mean Platelet Volume 10.2 Blood Urea Nitrogen 3 Creatinine 0.54 Random Glucose 104 Total Protein 6.7 Albumin 2.6 Calcium Level 8.3 Alkaline Phosphatase 73 Aspartate Amino Transf (AST/SGOT) 14 Alanine Aminotransferase (ALT/SGPT) 15 Total Bilirubin 0.3 Sodium Level 136 Potassium Level 3.4 Chloride Level 101 Carbon Dioxide Level 27.8 Anion Gap 7 Estimat Glomerular Filtration Rate 161 Imaging Last Impressions Abdomen/Pelvis CT 08/08/17 1417 Signed Impressions: Service Date/Time: Tuesday, August 08, 2017 15:58 - CONCLUSION: 1. 15 cm pseudocyst is present dilated pancreatic duct stone the pancreas. 2. Trace free fluid in the pelvis there Mikel Carrillo MD FACR Physical Exam HEENT: Normocephalic; atraumatic CHEST: Even/unlabored CARDIAC: RRR ABDOMEN: abd soft, less distended, nontender, bowel sounds active EXTREMITIES: No clubbing, cyanosis, or edema. SKIN: Normal; no rash; no jaundice. [employer]ORTER: No focal deficits; alert and oriented times three. (Reyna Cramer [facility]) Assessment and Plan Plan Assessment: - Pancreatic pseudocyst- Pt reports unintentional weight loss, severe epigastric pain and burning, nausea, and growing mass to left side of his abdomen since April. Previously heavy drinker, quit ETOH May 09 and changed his diet with no relief of symptoms. Does report one episode of pancreatitis approx [address] abdomen and pelvis with IV contrast (08/08) noted --> 15cm pseudocyst is present dilated pancreatic duct stone in the pancreas. Trace free fluid in the pelvis area. Lipase 1216. - Anemia- Currently 12.9/38.2 drop from 15/43.9 yesterday. Could be partially dilutional from IV fluids. No obvious GIB. However, pt does report taking Ibuprofen 2 tabs q 6hrs for epigastric pain for the past few weeks and prior to that was taking BC powder. Has never had EGD or colonoscopy (08/09) Pt tolerating clear liquids, denies nausea and vomiting. Reports abdominal pain this morning resolved with pain medication. States has not had a BM feels like he needs to have one. Dr. Graham spoke with regarding pts case, plan will be EUS with possible transgastric drainage of pseudocyst tomorrow and possible ercp with pancreatic stone extraction. Keep pt NPO after MN. CEA-2.7 BE42-3-5.1 Lipase improved to 436 today. 08/11/16 - procedure postponed till tomorrow, awaiting stent. Pt on clear liquid diet. [employer] today, not tender on exam. still distended and firm in LUQ. will make NPO after MN in preparation for procedures tomorrow. 08/13/16 - Pt doing well, s/p EUS with cyst gastrostomy, Large abdominal cyst probable pseudocyst of the pancreas. Plan: - await cyst fluid analysis - PETER - avoid ETOH - Monitor labs - Monitor H/H - Transfuse as needed - Patient will need an ERCP next week - Patient will need an EGD with stent removal in 4 weeks - Supportive care - f/u with GI after d/c pt seen by myself and Dr Schroeder and this note is written on his behalf (Reyna Cramer) Physician Comments Patient seen and examined Agree with above Continue with current supportive care Monitor labs (Merritt Schroeder MD) Reyna Cramer Aug 13, 2017 11:46 Merritt Schroeder MD Aug 14, 2017 00:56
== END 2017-08-13 14:53 | disposition home or self-care (01) | DRG 406 ==
LOC: NEPD 11:15 → NEDA 17:12 → N06A 19:09
PROVIDERS: ADMIT Hospitalist; ATTEND Hospitalist
PROC: BF47ZZZ Ultrasonography of Pancreas (ICD-10-PCS; 2017-08-12)
PROC: 0F7D8DZ Dilation of Pancreatic Duct with Intraluminal Device, Via Natural or Artificial Opening Endoscopic (ICD-10-PCS; 2017-08-12)
PROC: 0F9G4ZZ Drainage of Pancreas, Percutaneous Endoscopic Approach (ICD-10-PCS; principal; 2017-08-12 13:50)
DX: K85.80 Other acute pancreatitis without necrosis or infection (principal); K86.3 Pseudocyst of pancreas; K80.50 Calculus of bile duct without cholangitis or cholecystitis without obstruction; I10 Essential (primary) hypertension; F41.9 Anxiety disorder, unspecified; F17.290 Nicotine dependence, other tobacco product, uncomplicated; R63.4 Abnormal weight loss; Z86.73 Personal history of transient ischemic attack (TIA), and cerebral infarction without residual deficits; D64.9 Anemia, unspecified; K86.89 Other specified diseases of pancreas
CPT/HCPCS: 74177; 80053; 81001; 82378; 83690; 85025; 85027; 86301; 88173; 88305; 89051; 93005; 96361; 96374; 96375; C9113; J1100; J2270; J2405; J3010; J7030; J7120; Q9967